=== PATIENT | female | born 1990 | race Caucasian/White ===

== ENCOUNTER 2018-11-15 10:27 | Emergency (ER) | payer OTHER ==
[2018-11-15 10:32] VITALS: BP 120/73; PULSE 64; TEMP 97.9; BMI 30.7
--- NOTE | 2018-11-15 11:06 | PDOC ---
History of Present Illness - General Chief Complaint: Sore Throat Stated Complaint: COLD SYMPTOMS Time Seen by Provider: 11/15/18 10:39 History Source: Patient Exam Limitations: No Limitations - History of Present Illness Initial Comments: 11/15/18 10:57 4 days with complaints of runny nose, congestion, sore throat pain that radiates to the ear. Has been using Tylenol and old-fashioned treatments. States this felt feverish but did not take temperature. Children are ill with same. 11/15/18 12:09 Timing/Duration: unsure, 1 week Severity: mild, moderate Past History - Travel Traveled outside of the country in the last 30 days: No Close contact w/someone who was outside of country & ill: No - Past Medical History Allergies/Adverse Reactions: Allergies Allergy/AdvReac Type Severity Reaction Status Date / Time No Known Allergies Allergy Verified 11/15/18 10:29 Home Medications: Ambulatory Orders NK [No Known Home Medication] 11/15/18 COPD: No - Immunization History Immunization Up to Date: Yes - Suicide/Smoking/Psychosocial Hx Smoking History: Never smoked Review of Systems - Review of Systems Able to Perform ROS?: Yes Is the patient limited Armenian proficient: Yes Constitutional: Yes: Symptoms Reported, See HPI, Fever, Malaise HEENTM: Yes: Symptoms Reported Respiratory: Yes: Symptoms reported, See HPI, Cough. No: Wheezing Musculoskeletal: No: Symptoms Reported Integumentary: Yes: Symptoms Reported Neurological: Yes: Symptoms reported, See HPI, Headache All Other Systems: Reviewed and Negative *Physical Exam - Vital Signs Last Vital Signs Temp Pulse Resp BP Pulse Ox 97.9 F 64 18 120/73 100 11/15/18 10:29 11/15/18 10:29 11/15/18 10:29 11/15/18 10:29 11/15/18 10:29 - Physical Exam General Appearance: Yes: Nourished, Appropriately Dressed (frontal sinus), Mild Distress. No: Apparent Distress HEENT: positive: DAILY, Normal ENT Inspection, TMs Normal (just about landmarks easily visualized), Pharynx Normal (mild erythema no exudate ) Neck: positive: Supple, Lymphadenopathy (R), Lymphadenopathy (L). negative: Tender Respiratory/Chest: positive: Lungs Clear, Normal Breath Sounds. negative: Rhonchi, Wheezing Gastrointestinal/Abdominal: positive: Normal Bowel Sounds, Soft. 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, Fully Oriented, Alert, Normal Mood/ Affect, Normal Response, Motor Strength 5/5 Moderate Sedation - Procedure Monitoring Vital Signs: Procedure Monitoring Vital Signs Temperature 97.9 F 11/15/18 10:29 Pulse Rate 64 11/15/18 10:29 Respiratory Rate 18 11/15/18 10:29 Blood Pressure 120/73 11/15/18 10:29 O2 Sat by Pulse Oximetry (%) 100 11/15/18 10:29 *DC/Admit/Observation/Transfer Diagnosis at time of Disposition: Upper respiratory infection Qualifiers: URI type: unspecified viral URI Qualified Code(s): J06.9 - Acute upper respiratory infection, unspecified - Discharge Dispostion Disposition: HOME Condition at time of disposition: Stable Decision to Admit order: No - Referrals - Patient Instructions Printed Discharge Instructions: DI for Viral Upper Respiratory Infection -- Adult Additional Instructions: Rest, drink lots of fluids: Teas, water, soups, Pedialyte Saltwater gargles Steamy showers/seem to face break up mucus Avoid contact with others until fevers and cough resolved Lots of handwashing and good hygiene Continue [id number] medications for symptomatic relief Tylenol or Motrin for fever and pain Followup with private physician in one to 2 days as needed Return to emergency department for worsened symptoms, fevers, dehydration - Post Discharge Activity Forms/Work/School Notes: Back to Work
== END 2018-11-15 12:15 | disposition home or self-care (01) ==
LOC: JERFT 10:27
DX: J06.9 Acute upper respiratory infection, unspecified (principal); B97.89 Other viral agents as the cause of diseases classified elsewhere
CPT/HCPCS: 87070; 87880; 99281-25

== ENCOUNTER 2019-12-22 13:24 | Emergency (ER) | payer OTHER ==
[2019-12-22] MEDS ORDERED: ACETAMINOPHEN 500 MG TABLET (FP) PO ONE (13:56)
--- NOTE | 2019-12-22 13:56 | PDOC ---
Rapid Medical Evaluation Time Seen by Provider: 12/22/19 13:43 Medical Evaluation: Allergies Allergy/AdvReac Type Severity Reaction Status Date / Time No Known Allergies Allergy Verified 11/15/18 10:29 12/22/19 13:53 CC: fevers, myalgias, sore throat, headache, moist cough x4 days PE: No focal findings Orders: tylenol Patient will proceed to the ED for further evaluation. Discharge Disposition - Diagnosis Influenza-like illness - Referrals - Patient Instructions - Post Discharge Activity
[2019-12-22 13:57] VITALS: BP 125/79; PULSE 84; TEMP 98.2; BMI 27.4
[2019-12-22] MEDS ORDERED: ACETAMINOPHEN 325 MG TABLET (FP) ONE (14:26)
--- NOTE | 2019-12-22 14:31 | PDOC ---
History of Present Illness - General Chief Complaint: Cold Symptoms Stated Complaint: HEADACHE Time Seen by Provider: 12/22/19 13:43 History Source: Patient - History of Present Illness Timing/Duration: reports: other (4 days ago) Past History - Past Medical History Allergies/Adverse Reactions: Allergies Allergy/AdvReac Type Severity Reaction Status Date / Time No Known Allergies Allergy Verified 12/22/19 13:53 Home Medications: Ambulatory Orders NK [No Known Home Medication] 11/15/18 COPD: No - Immunization History Immunization Up to Date: Yes - Psycho Social/Smoking Cessation Hx Smoking History: Never smoked Have you smoked in the past 12 months: No Hx Alcohol Use: No Drug/Substance Use Hx: No Review of Systems - Review of Systems Constitutional: Yes: Fever HEENTM: No: Ear Pain, Throat Pain Respiratory: Yes: Cough. No: Shortness of Breath Cardiac (ROS): No: Chest Pain *Physical Exam - Vital Signs Last Vital Signs Temp Pulse Resp BP Pulse Ox 98.2 F 84 18 125/79 99 12/22/19 13:54 12/22/19 13:54 12/22/19 13:54 12/22/19 13:54 12/22/19 13:54 - Physical Exam General Appearance: Yes: Appropriately Dressed. No: Apparent Distress HEENT: positive: Normal ENT Inspection, Normal Voice, TMs Normal, Pharynx Norm al. negative: Scleral Icterus (R), Scleral Icterus (L) Neck: positive: Supple. negative: Lymphadenopathy (R), Lymphadenopathy (L) Respiratory/Chest: positive: Lungs Clear, Normal Breath Sounds. negative: Respiratory Distress Cardiovascular: positive: Regular Rate, S1, S2 Integumentary: positive: Dry, Warm Neurologic: positive: Fully Oriented, Alert, Normal Mood/Affect ED Treatment Course - Medications Given in the ED: ED Medications Discontinued Medications Generic Name Dose Route Start Last Admin Trade Name Freq PRN Reason Stop Dose Admin Acetaminophen 1,000 mg 12/22/19 13:56 12/22/19 14:25 Tylenol - PO 12/22/19 13:57 1,000 mg ONCE ONE Administration Medical Decision Making - Medical Decision Making 12/22/19 14:28 29-year-old female, no significant history, here with cough with congestion, headache and subj fever for 4 days. Denies body aches, neck pain, photophobia or SOB. Has not been taking anything for her symptoms see exam Viral syndrome, ? influenza No utility in flu swab as outside window for tamiflu and no comorbidities Stable and well isaiah here Dc w/ supportive tx 12/22/19 14:30 Discharge - Discharge Information Problems reviewed: Yes Clinical Impression/Diagnosis: Viral syndrome Condition: Good Disposition: HOME - Follow up/Referral - Patient Discharge Instructions Patient Printed Discharge Instructions: DI for Viral Syndrome Print Language: ENGLISH - Post Discharge Activity Work/Back to School Note: Back to Work
== END 2019-12-22 14:38 | disposition home or self-care (01) ==
LOC: JERFT 13:24 → JER 13:24 → JERFT 14:38
DX: J11.1 Influenza due to unidentified influenza virus with other respiratory manifestations (principal)
CPT/HCPCS: 99281-25

== ENCOUNTER 2020-06-14 13:32 | Emergency (ER) | payer OTHER ==
--- NOTE | 2020-06-14 13:37 | PDOC ---
Rapid Medical Evaluation Time Seen by Provider: 06/14/20 13:36 Medical Evaluation: Allergies Allergy/AdvReac Type Severity Reaction Status Date / Time No Known Allergies Allergy Verified 12/22/19 13:53 06/14/20 13:36 I have performed a brief in-person evaluation of this patient. The patient presents with a chief complaint of:b/l ear pain, no f/c. No recent swimming Pertinent physical exam findings:stable, isaiah uncomfortable I have ordered the following:nothing The patient will proceed to the ED for further evaluation. Discharge Disposition - Diagnosis Ear pain Qualifiers: Laterality: bilateral Qualified Code(s): H92.03 - Otalgia, bilateral - Referrals - Patient Instructions - Post Discharge Activity
[2020-06-14 13:39] VITALS: BP 143/76; PULSE 109; TEMP 98.6; BMI 30.7
--- NOTE | 2020-06-14 14:04 | PDOC ---
History of Present Illness - General Chief Complaint: Ear Problem Stated Complaint: EARACHE Time Seen by Provider: 06/14/20 13:36 - History of Present Illness Initial Comments: 06/14/20 13:58 29-year-old female without comorbidities presents for evaluation of bilateral ear pain x3 days. She is currently on a course of amoxicillin for otitis media. Past History - Medical History Allergies/Adverse Reactions: Allergies Allergy/AdvReac Type Severity Reaction Status Date / Time No Known Allergies Allergy Verified 06/14/20 13:38 Home Medications: Ambulatory Orders Ciprofloxacin HCl/Dexameth [Ciprodex Otic Suspension] 4 drop AU BID 7 Days #1 bottle 06/14/20 COPD: No - Immunization History Immunization Up to Date: Yes - Psycho-Social/Smoking History Smoking History: Never smoked Have you smoked in the past 12 months: No Information on smoking cessation initiated: Yes - Substance Abuse Hx (Audit-C & DAST Scrn) How often the patient has a drink containing alcohol: Never Score: In Men: 4 or > Positive; In Women: 3 or > Positive: 0 Screen Result (Pos requires Nsg. Audit-10AR): Negative In the last yr the pt used illegal drug/Rx for NonMed reason: No Score: Yes response is considered Positive: 0 Screen Result (Positive result requires Nsg. DAST-10): Negative Review of Systems - Review of Systems Constitutional: No: Fever HEENTM: Yes: Ear Pain *Physical Exam - Vital Signs Last Vital Signs Temp Pulse Resp BP Pulse Ox 98.6 F 109 H 19 143/76 99 06/14/20 13:37 06/14/20 13:37 06/14/20 13:37 06/14/20 13:37 06/14/20 13:37 - Physical Exam 06/14/20 13:59 Bilateral ear canals are injected with exudative purulent material in the canal. Tympanic membranes are not visualized. Medical Decision Making - Medical Decision Making 06/14/20 13:59 Continue amoxicillin for otitis media will add Ciprodex for otitis externa. Patient assures me there is no chance of . I have reviewed the pathophysiology with the patient. They are in agreement with the treatment plan all questions were answered to their satisfaction. Understanding for follow-up without fail was also conveyed to the patient. Again they are in agreement. Discharge - Discharge Information Problems reviewed: Yes Clinical Impression/Diagnosis: Otitis externa Ear pain Qualifiers: Laterality: bilateral Qualified Code(s): H92.03 - Otalgia, bilateral Condition: Stable Disposition: HOME - Admission No - Additional Discharge Information Prescriptions: Ciprofloxacin HCl/Dexameth [Ciprodex Otic Suspension] 4 drop AU BID 7 Days #1 bottle - Follow up/Referral Referrals: Francisco Gasca MD [Staff Physician] - - Patient Discharge Instructions Additional Instructions: Tylenol and Motrin as directed for pain. Please continue the amoxicillin as well as the eardrops you were prescribed today. Return to the emergency room for worsening symptoms and without fail follow-up with ear nose and throat doctor in 1 to 2 days for further evaluation and treatment options. - Post Discharge Activity
== END 2020-06-14 14:08 | disposition home or self-care (01) ==
LOC: JERFT 13:32
DX: H92.03 Otalgia, bilateral (principal)
CPT/HCPCS: 99283-25